=== PATIENT | female | born 2005 | race Caucasian/White ===

== ENCOUNTER 2025-07-01 19:51 | Emergency (ER) | payer OTHER, SELFPAY ==
[2025-07-01 19:56] VITALS: BP 145/83; PULSE 97; RESP 20; TEMP 36.8; O2SAT 97; BMI 27.4
--- NOTE | 2025-07-01 20:26 | ED.GENADULT ---
HPI - General Adult General Date Seen: 07/01/25 Chief complaint: Eye Problems Stated complaint: possible eye infection Time Seen by Provider: 07/01/25 20:09 History of Present Illness HPI narrative: Patient is a 20-year-old [employer] student, here for evaluation of swelling and redness of her right eyelid. 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 Yesterday, she noted increased dryness and itching above her right eye. She has been diagnosed with seborrheic dermatitis in the past, she was given something for many years ago but does not have anything now. She has been told to use an ointment such as Aquaphor or Vaseline when she swims to protect her skin. Today however she woke up with swelling in the eyelid which she has not had before. It is mildly painful at this point, she does not have any ocular pain, vision changes or drainage. She does wear contact lenses, she does were glasses all the time. She has not had any fevers or systemic complaints. She did a virtual visit and was advised to come to the ER. Related Data Home Medications ?Medication ?Instructions ?Recorded ?Confirmed dexmethylphenidate .ROUTE 07/01/25 fluoxetine .ROUTE 07/01/25 Previous Rx's ?Medication ?Instructions ?Recorded amoxicillin 875 mg-potassium 1 tab PO BID #20 tabs 07/01/25 clavulanate 125 mg tablet ketoconazole 2 % topical cream 1 applic topical BID #15 grams 07/01/25 sulfamethoxazole 800 1 tab PO BID #20 tabs 07/01/25 mg-trimethoprim 160 mg tablet (Bactrim DS) Allergies Allergy/AdvReac Type Severity Reaction Status Date / Time gluten Allergy Unknown Verified 07/01/25 20:00 Review of Systems Status of ROS: Reports: 6 or more systems reviewed and unremarkable except as noted in History and below [facility] Social History Smoking Status: Never smoker Second hand tobacco smoke exposure: No How often do you have a drink containing alcohol: never AUDIT-C Alcohol total score: 0 Non-prescribed substance use: denies use Exam Narrative: Exam Narrative: Vital signs reviewed In general, alert, well-appearing woman. Head: Normocephalic, atraumatic. Eyes: The right eyelid is mildly swollen, faintly erythematous up to the brow. She has a scaly rash consistent with seborrheic dermatitis under the eyebrow. Extraocular movements are full, no pain. Sclera clear. ENT: No other facial swelling, redness or rashes. Const: Vital Signs, click to edit/add: Vital Signs - 24 hr 07/01/25 19:56 Temperature 98.3 F Pulse Rate [Pulse Oximeter] 97 Respiratory Rate 20 Blood Pressure [Ri ght Upper Arm] 145/83 H Pulse Oximetry 97 Oxygen Delivery Me thod Room Air Course Course ED Course: Exam is consistent with seborrheic dermatitis of the upper eyelid, she may be developing a mild superimposed cellulitis here, certainly think it is reasonable to treat with an antibiotic to cover that, but I also think she needs treatment for the seborrheic dermatitis. I have sent prescriptions for ketoconazole 2% cream, and then I sent prescriptions for Bactrim and Augmentin to cover skin kathy +MRSA. Reviewed reasons to return such as severely increased swelling or pain, ocular pain, fevers, vision changes. Nothing at this time suggestive of orbital cellulitis. Recheck otherwise in a couple of days with her school clinic. She is comfortable with that plan. Vital Signs Vital signs: Initial Vital Signs Temperature 98.3 F 07/01/25 19:56 Temperature Source Temporal Artery Scan 07/01/25 19:56 Pulse Rate 97 07/01/25 19:56 Respiratory Rate 20 07/01/25 19:56 Blood Pressure 145/83 H 07/01/25 19:56 Blood Pressure Mean 103 07/01/25 19:56 Blood Pressure Position Sitting 07/01/25 19:56 Pulse Oximetry 97 07/01/25 19:56 Oxygen Delivery Method Room Air 07/01/25 19:56 Vital Signs Temperature 98.3 F 07/01/25 19:56 Pulse Rate 97 07/01/25 19:56 Respiratory Rate 20 07/01/25 19:56 Blood Pressure 145/83 H 07/01/25 19:56 Pulse Oximetry 97 07/01/25 19:56 Oxygen Delivery Method Room Air 07/01/25 19:56 Temperature 98.3 F 07/01/25 19:56 Pulse Rate 97 07/01/25 19:56 Respiratory Rate 20 07/01/25 19:56 Blood Pressure 145/83 H 07/01/25 19:56 Pulse Oximetry 97 07/01/25 19:56 Oxygen Delivery Method Room Air 07/01/25 19:56 Discharge Plan Discharge Clinical Impression: Seborrheic dermatitis, Preseptal cellulitis of right eye Patient Disposition: Home, Self-Care Condition: Stable Instructions: Periorbital Cellulitis (ED), Seborrheic Dermatitis (DC) Additional Instructions: As discussed, part of your symptoms are due to seborrheic dermatitis. I am prescribing a topical cream for you to use to work on that. There may be a component of superimposed infection, so I am starting you on 2 antibiotics. If you are worsening instead of improving, you should come back to the ER right away, symptoms such as severe eye pain, fevers, or vision changes should prompt a return to the ER. Otherwise, I would recommend follow-up in a couple of days for recheck at your school clinic. Prescriptions: New ketoconazole 2 % cream 1 applic topical BID Qty: 15 0RF sulfamethoxazole-trimethoprim [Bactrim DS] 800-160 mg tablet 1 tab PO BID Qty: 20 0RF amoxicillin-pot clavulanate 875-125 mg tablet 1 tab PO BID Qty: 20 0RF No Action dexmethylphenidate .ROUTE fluoxetine [Prozac] .ROUTE Stand Alone Forms: [employer] Info Instructions
--- OUTSIDE RECORDS SUMMARY | 2025-07-01 20:46 | XMS_ITS | Patient Health Record ---
Author Organization [facility] Address [address] [place] [address] Care Team Providers Care Business Strategy Manager Name Role Phone Barbi CELAYA, Andra Primary Care Provider DAVE OMALLEY Unavailable [phone] Reason For Referral No Information Social History Social History Additional Details Category Social Info Options Details PSA Social History Child Lives At: At [facility] Child Lives With: Mother and [facility] No Siblings 2 sisters Alcohol/Drugs? No Activities / Interests? swimming , soccer, biking, reading, sewing Others Residing In Home: none Employment No Recent Travel [place] in March Problems Problem Type SNOMED Code ICD Code Onset Dates Problem Status W/U Status Risk Notes Problem Umbilical hernia (655892257) Umbilical hernia (553.1) Active confirmed Problem Right inguinal hernia (451252639) Right inguinal hernia (550.90) Active confirmed Plan Of Treatment No Information Insurance Providers Payer Name Payer Address Payer Phone Subscriber Number Group Number Insured Name Patient Relationship to Insured Coverage Start Date Coverage End Date [employer] [address] [address] [place] [phone] [id number] Violeta Mohamud Child - Insured has Financial Responsibility 2 Medical (General) History Medical History History ICD Code Injuries: none Immunizations: up to date viral meningitis Surgical History Surgery Date(Month/Year) Hospitalization History Reason Date(Month/Year) viral meningitis, stayed 2 days 05/2010
--- OUTSIDE RECORDS SUMMARY | 2025-07-01 20:46 | XMS_ITS | Clinical Summary ---
Author Organization [employer] Address [address] [place] [address] Care Team Providers Care Elevator Service Technician Name Role Phone Clinician, Not Found MD Primary Care Provider Un available Source Comments You are receiving this document as you are listed as the primary care provider,follow-up provider, or the patient has been referred to you for consultation.This is in compliance with the Medicare and[facility] EHR Incentive Program,which states Providers who transition their patient to another setting of careor provider of care or refers their patient to another provider of care shouldprovide summary care record for each transition of care or referral. [employer] Allergies Active Allergy Reactions Criticality Noted Date Comments Gluten Meal Hives,Gastrointestinal High 11/07/2023 Celiac disease Lactose Gastrointestinal 11/07/2023 Medications fluticasone (FLOVENT HFA) 44 mcg/actuation inhaler Inhale 1 Puff two times a day. Rinse mouth/gargle after use Active methylphenidate (RITALIN SR) 10 MG controlled release tablet Take 1 Tablet (10 mg) by mouth daily. 06/18/2023 Active budesonide-form oterol (SYMBICORT) 80-4.5 MCG/ACT inhaler Inhale 2 Puffs two times a day. Rinse mouth/gargle after use. Active dexmethylphenid ate (FOCALIN XR) 10 MG 24 hour release capsule Take 1 Capsule (10 mg) by mouth every morning. 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 (11/26/2024): mild T7-8 Celiac disease 11/07/2023 Social History Tobacco Use Types Packs/Day Years Used Date Smoking Tobacco: Never Passive Smoke Exposure: Never Smokeless Tobacco: Never Tobacco Cessation:Counseling Given: Not Answered Alcohol Use Standard Drinks/Week Comments Never 0 (1 standard drink = 0.6 oz pur e alcohol) Comments No Sex and Gender Information Value Date Recorded Sex Assigned at Not on file Legal Sex Female 5:50 PM SYNTHETIC SOIL [employer]S PULPER Gender Identity Not on file Sexual Orientation Not on file Last Filed Vital Signs Vital Sign Reading Time Taken Comments Blood Pressure 126/63 11/07/2023 8:05 AM SYNTHETIC [employer]IL [employer] PULPER Pulse 86 11/07/2023 8:05 AM SYNTHETIC [employer]IL [employer] PULPER Temperature 36.7 C (98 F) 11/07/2023 8:05 AM SYNTHETIC SOIL BLOCK[employer] PULPER Respiratory Rate 20 11/07/2023 8:05 AM SYNTHETIC SOIL [employer] PULPER Oxygen Saturation - - Inhaled Oxygen Concentration - - Weight 70.7 kg (155 lb 12.8 oz) 11/07/2023 8:05 AM SYNTHETIC SOIL [employer] PULPER Height 165.1 cm (5' 5) 01/05/2021 1:22 PM CDT Body Mass Index - - Plan of Treatment Health Maintenance Due Date Last Done Comments Chlamydia 2005 Hep C Screening (Preventive Services) 2005 MenB Immunization Discussion 2005 HIV Screening (Preventive Services) 2021 Adult Preventive Visit 2023 HepB Vaccine (1) 2024 Influenza Vaccine (#1) 2025 , 06/18/2023, 08/18/2022, Additional history exists DTaP/Tdap/Td Vaccine (7 - Tdap) 02/15/2027 02/15/2017, 09/09/2010, 09/09/2009, Additional history exists Zoster/Shingles Vaccine (1 of 2) 2055 Pneumococcal Vaccine Aged Out 05/14/2006, 2005, 2005, Additional history exists No longer eligible based on patient's age to complete this topic Hib Vaccine Completed 08/06/2006, 11/2005, 2005 HepA Vaccine Completed 11/15/2006, 01/2007, 05/14/2006 IPV (Polio) Vaccine Completed 09/09/2010, 09/09/2009, 2005, Additional history exists HPV Vaccine Completed 08/28/2017, 02/15/2017 MCV4 Vaccine Completed 04/12/2022, 02/15/2017 COVID-19 Vaccine Completed 05/25/2024, 05/2023, 05/31/2022, Additional history exists Insurance [facility] Member Subscriber Plan / Payer (Ef fective 2013-Present) Name:Yumiko Mohamud Relation to Subscriber:Self Name:Yumiko Mohamud Payer ID:[id number] ([facility]) Type:Commercial Address: [facility] [id number] [employer] Care Teams Elevator Service Technician Relationship Specialty Start Date End Date Clinician, Not Found, [place] [address] PCP - General 10/31/24
--- OUTSIDE RECORDS SUMMARY | 2025-07-01 20:46 | XMS_ITS | Clinical Summary ---
Author Organization [facility] Address [address] [place] [address] Care Team Providers Care Tire Changer Aircraft Name Role Phone Pcp, No Primary Care Provider Unavailabl e Allergies No known active allergies Active Problems Problem Noted Date Diagnosed Date Celiac disease 06/13/2024 Overview (06/13/2024): 14 years old, Biopsy proven. 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 ADHD (attention deficit hype ractivity disorder), combined type 06/13/2024 Overview (06/13/2024): Ritalin. Social History Tobacco Use Types Packs/Day Years Used Date Smoking Tobacco: Never Assessed Comments Unknown Sex and Gender Information Value Date Recorded Sex Assigned at Not on file Legal Sex Female 7:11 AM DRUPAL ARCHITECT Gender Identity Not on file Sexual Orientation Not on file Plan of Treatment Health Maintenance Due Date Last Done Comments Well Child Check for age 3-20 04/04/2008 Tetanus booster 2016 Depression screening for age 12+ 2017 HIV for age 15-65 2020 HPV series for age 9-45 (1 - 3-dose series) 2020 BMI (ht and wt on same day) for age 18+ 2023 Hepatitis C screening for age 18-79 2023 Hepatitis B series for 19+ ( 1 of 3 - 19+ 3-dose series) 2024 Influenza Vaccine (#1) 2025 RSV vaccine for adults or pr egnancy (1 - 1-dose 75+ series) 2080 Meningococcal series for age 11-21 Aged Out No longer eligible based on patient's age to complete this topic Pneumococcal series for age 6-49 Aged Out No longer eligible based on patient's age to complete this topic Insurance [employer] Care Teams Tire Changer Aircraft Relationship Specialty Start Date End Date Pcp, No . PCP - General 07/01/24
--- OUTSIDE RECORDS SUMMARY | 2025-07-01 20:46 | XMS_ITS | Patient Health Record ---
Author Organization [facility] Address [address] [place] [id number] Care Team Providers Care Supervisor Cellars Name Role Phone Lorna Zambrano Primary Care Provider Allergies No Known Allergies Results Component Value Reference Range Flag Notes CMP (Comprehensive Metabolic Panel-14)) Reviewed date:02/27/2025 10:03:57 AM Interpretation:Normal Performing Lab:[address] [id number] Notes/Report: Draw Location: [facility] Urinalysis, without Micro (r outine UA) Reviewed date:02/27/2025 10:04:29 AM Interpretation:Normal Performing Lab:[address] [id number] Notes/Report: Draw Location: [facility] Zinc - MH Reviewed date:03/03/2025 01:28:54 PM Interpretation: Performing Lab: [facility] [id number] Notes/Report: Draw Location: [facility] ZINC, SERUM/PLASMA 62.3 60.0-120.0 ug/dL INTERPRETIVE INFORMATION: Zinc, Serum or Plasma Elevated results may be due to skin or collection-related contamination, including the use of a noncertified metal-free collection/transport tube. If contamination concerns exist due to elevated levels of serum/plasma zinc, confirmation with a second specimen collected in a certified metal-free tube is recommended. Circulating zinc concentrations are dependent on albumin status and are depressed with malnutrition. Zinc may also be lowered with infection, inflammation, stress, oral contraceptives, and . Zinc may be elevated with zinc supplementation or fasting. Elevated zinc concentrations may interfere with copper absorption. This test was developed and its performance characteristics determined by [facility]. It has not been cleared or approved by the [place] Food and Drug Administration. This test was performed in a CLIA certified laboratory and is intended for clinical purposes. Performed By: [facility] [address] [place] [address] Fire Extinguisher Installer: Nick Trujillo MD, PhD CLIA Number: [id number] Vitamin D Deficiency (routin e) - Reviewed date:03/03/2025 01:26:56 PM Interpretation: Performing Lab:[facility] [id number] Notes/Report: Draw Location: [facility] VITAMIN D DEFICIENCY SCREENING (LAYNE) 36 20-50 ng/mL optimum levels Season, race, dietary intake, and treatment affect the concentration of 75-fwzgzwk-Lrwgoek D. Values may decrease during winter months and increase during summer months. Vitamin D determination is routinely performed by an immunoassay specific for 25 hydroxyvitamin D3. If an individual is on vitamin D2(ergocalciferol) supplementation, please specify 25 OH vitamin D2 and D3 level determination by LCMSMS test VITD23. TSH - Reviewed date:03/03/2025 01:27:45 PM Interpretation:Normal Performing Lab:[facility] [id number] Notes/Report: Draw Location: [facility] TSH (LAYNE) 1.02 0.50-4.30 uIU/mL Triiodothyronine (T3) Free - Reviewed date:03/03/2025 01:28:04 PM Interpretation:Normal Performing Lab:[facility] [id number] Notes/Report: Draw Location: [facility] T3 FREE 3.5 2.0-4.4 pg/mL Thyroid Peroxidase Antibody - Reviewed date:03/03/2025 01:28:26 PM Interpretation: Performing Lab:[facility] [id number] Notes/Report: Draw Location: [facility] THYR PEROXIDASE LIBBY <10 <35 IU/mL Anti Thyroglobulin Antibody - Reviewed date:03/03/2025 01:27:12 PM Interpretation: Performing Lab:[facility] [id number] Notes/Report: Draw Location: [facility] THYROGLOBULIN ANTIBODY <20 <40 IU/mL TEDDY (Antinuclear Antibody Ca scade) - Reviewed date:03/03/2025 01:27:25 PM Interpretation: Performing Lab:[facility] [id number] Notes/Report: Draw Location: [facility] TEDDY INTERPRETATION Borderline Positive Negative A Negative: <1:40 Borderline Positive: 1:40 - 1:80 Positive: >1:80 TEDDY PATTERN 1 Speckled TEDDY TITER 1 1:40 Ceruloplasmin - Reviewed date:03/03/2025 01:28:34 PM Interpretation: Performing Lab:[facility] [id number] Notes/Report: Draw Location: [facility] CERULOPLASMIN 25 20-60 mg/dL T4 Free - Reviewed date:03/03/2025 01:27:32 PM Interpretation: Performing Lab:[facility] [id number] Notes/Report: Draw Location: [facility] THYROXINE, FREE 0.87 1.00-1.60 ng/dL L Miscellaneous Test - Reviewed date:03/03/2025 01:28:48 PM Interpretation: Performing Lab:[facility] [id number] Notes/Report: Draw Location: [facility] LABORATORY MISCELLANEOUS ORDER CANCELED Incorrect Specimen Type Rec'd ~.5 mL of unknown serum/plasma in an aliquot tube. Test requires whole blood in yellow ACD soln tube. Notified Sona at clinic lab. SPECIMEN SOURCE Blood Other Copper Level - Reviewed date:03/03/2025 01:27:52 PM Interpretation: Performing Lab:[facility] [id number] Notes/Report: Draw Location: [facility] COPPER 74.1 80.0-155.0 ug/dL L INTERPRETIVE INFORMATION: Copper, Serum or Plasma Elevated results may be due to skin or collection-related contamination, including the use of a noncertified metal-free collection/transport tube. If contamination concerns exist due to elevated levels of serum/plasma copper, confirmation with a second specimen collected in a certified metal-free tube is recommended. Serum copper may be elevated with infection, inflammation, stress, and copper supplementation. In females, elevated copper may also be caused by oral contraceptives and (concentrations may be elevated up to 3 times normal during the third trimester). This test was developed and its performance characteristics determined by [facility]. It has not been cleared or approved by the [place] Food and Drug Administration. This test was performed in a CLIA certified laboratory and is intended for clinical purposes. Performed By: [facility] [address] [place] [address] Fire Extinguisher Installer: Nick Trujillo MD, PhD CLIA Number: [id number] [facility] - Reviewed date:03/03/2025 01:28:19 PM Interpretation: Performing Lab:[facility] [id number] Notes/Report: Draw Location: [facility] CORTISOL, SERUM 3.7 6 to 10 AM Cortisol Reference Range: 4-22 ug/dL 4 to 8 PM Cortisol Reference Range: 3-17 ug/dL GGT - Reviewed date:03/03/2025 01:28:41 PM Interpretation:Normal Performing Lab:[facility] [id number] Notes/Report: Draw Location: [facility] GGT (LAYNE) 14 5-36 U/L Ferritin - Reviewed date:03/03/2025 01:28:11 PM Interpretation:Normal Performing Lab:[facility] [id number] Notes/Report: Draw Location: [facility] FERRITIN 85 6-175 ng/mL EBV Ab (Karely-Goncalves Virus A ntibody IgG) - Reviewed date:03/03/2025 01:27:05 PM Interpretation: Performing Lab:[facility] [id number] Notes/Report: Draw Location: [facility] EBVCAG INSTRUMENT VALUE <10.0 <18.0 U/mL EBV CAPSID ANTIBODY IGG No detectable antibody. No detectable antibody. EBVNA1 INSTRUMENT VALUE <3.0 <18.0 U/mL EBV NUCLEAR ANTIGEN (EBNA) ANTIBODY IGG No detectable antibody. No detectable antibody. EBVEAD INSTRUMENT VALUE <5.0 0.0-9.0 U/mL EBV ANTIBODY TO EARLY ANTIGEN IGG No detectable antibody. No detectable antibody. DHEA Sulfate - Reviewed date:03/03/2025 01:27:38 PM Interpretation: Performing Lab:[facility] [id number] Notes/Report: Draw Location: [facility] DHEA SULFATE 201 35-430 ug/dL Vitamin A- Reviewed date:03/03/2025 01:27:19 PM Interpretation: Performing Lab:[facility] [id number] Notes/Report: Draw Location: [facility] VITAMIN A 0.62 0.30-1.20 mg/L RETINOL PALMITATE 0.02 0.00-0.10 mg/L VITAMIN A INTERP Normal This test was developed and its performance characteristics determined by [facility]. It has not been cleared or approved by the US Food and Drug Administration. This test was performed in a CLIA certified laboratory and is intended for clinical purposes. Performed By: [facility] [address] [place] [address] [employer] Extinguisher Installer: Nick Trujillo MD, PhD CLIA Number: [id number] CBC, Complete, with Auto Dif f - Sysmex Reviewed date:02/27/2025 10:03:46 AM Interpretation: Performing Lab:[facility], [facility] [address], [place], [place] [id number] Notes/Report: Draw Location: [facility] Insulin Libby-MH Reviewed date:03/04/2025 06:06:49 AM Interpretation: Performing Lab:[facility] [id number] Notes/Report: Draw Location: [facility] INSULIN ANTIBODIES <0.4 0.0-0.4 U/mL INTERPRETIVE INFORMATION: Insulin Antibody A value greater than 0.4 Kronus Units/mL is considered positive for Insulin Antibody. Kronus units are arbitrary. Kronus Units = U/mL. This assay is intended for the semi-quantitative determination of antibodies to endogenous insulin or antibodies to exogenous insulin in human serum. Antibodies to exogenous insulin therapies may be detected using this method. The magnitude of the measured result is not related to disease progression. Results should be interpreted within the context of clinical symptoms. Performed By: [facility] [address] [place] [address] Fire Extinguisher Installer: Nick Trujillo MD, PhD CLIA Number: [id number] Reverse T3 Reviewed date:03/03/2025 05:52:23 PM Interpretation: Performing Lab:[facility] [id number] Notes/Report: Draw Location: [facility] T3, REVERSE NG/DL 5.2 9.0-27.0 ng/dL L INTERPRETIVE INFORMATION: Triiodothyronine, Reverse - LC-MS/MS This test was developed and its performance characteristics determined by [facility]. It has not been cleared or approved by the US Food and Drug Administration. This test was performed in a CLIA certified laboratory and is intended for clinical purposes. Performed By: [facility] [address] [place] [address] [employer] Extingu[employer] Installer: Nick Trujillo MD, PhD CLIA Number: [id number] Reason For Referral No Information Medications Medication SIG (Take, Route, Frequency, Duration) Notes Start Date End Date Status Melatonin 5 MG Tablet 1/2 tab qhs Orally Once a day; Duration: 30 day(s) Active Focalin XR 20 MG Capsule Extended Release 24 Hour 1 capsule in the morning Orally Once a day; Duration: 30 days 12/17/2024 Active ZyrTEC Allergy Activ e Symbicort 80-4.5 MCG/ACT Aerosol 1 puff as needed Inhalation every 4 hrs Not-Taking/PRN PROzac 10 MG Capsule 1 capsule in the morning in addition to 20mg for a total of 30mg Orally Once a day; Duration: 90 days Active NuvaRing Active Flovent HFA 110 MCG/ACT Aerosol 1 puff Inhalation Twice a day; Duration: as needed PRN colds Not-Taking/P RN Focalin 5 MG Tablet 1 tablet as needed at noon Orally Once a day; Duration: 90 days 05/09/2024 Active Focalin XR 15 MG Capsule Extended Release 24 Hour 1 capsule in the morning Orally Once a day; Duration: 30 days 06/16/2024 Active Vitamin B 12 Active Iron Active PROzac 20 MG Capsule 1 capsule in the morning in addition to 10mg dose for a total of 30mg Orally Once a day; Duration: 30 days Active Vitamin D Active FLUoxetine HCl 10 MG Capsule 1 capsule in addition to 20mg for a total of 30mg Orally Once a day; Duration: 30 days 03/24/2025 Active Immunizations Vaccine Route Administration Date Status Comme nts Varicella, (Varivax) Unknown 05/14/2006 Administered Varicella, (Varivax) Unknown 05/17/2009 Administered Typhoid vaccine, injectable (ViCPs) IM Intramuscular 11/14/2023 Administered Tdap (tetanus diptheria pertussis), over 7 yrs (Boostrix) IM Intramuscular 02/15/2017 Administered SARSCOV2 vaccine, (Pfizer) Omnicron Unknown 05/31/2022 Administered SARSCOV2 vaccine, (Pfizer) 12-17 original formulation IM Intramuscular 01/26/2021 Administered SARSCOV2 vaccine, (Pfizer) 12-17 original formulation IM Intramuscular 02/16/2021 Administered SARSCOV2 vaccine, (Pfizer) 12-17 original formulation Unknown 08/12/2021 Administered SARSCOV2 vaccine, (Moderna) 12yrs and older Unknown 05/25/2024 Administered SARS-COV-2 (COVID-19) vaccine, unspecified Unknown 08/11/2023 Administered Polio vaccine, (IPOL) Unknown 2005 Administered Polio vaccine, (IPOL) Unknown 2005 Administered Polio vaccine, (IPOL) Unknown 2005 Administered Pneumococcal vaccine, 7 valent (Prevnar 7) Unknown 2005 Administered Pneumococcal vaccine, 7 valent (Prevnar 7) Unknown 2005 Administered Pneumococcal vaccine, 7 valent (Prevnar 7) Unknown 2005 Administered Pneumococcal vaccine, 7 valent (Prevnar 7) Unknown 05/14/2006 Administered MMR vaccine, live Unknown 05/14/2006 Administered MMR vaccine, live Unknown 05/17/2009 Administered Meningococcal, (Menveo) tetravalent IM Intramuscular 02/15/2017 Administered lower Meningococcal, (Menveo) tetravalent IM Intramuscular 04/12/2022 Administered Influenza vaccine, historical Unknown 08/18/2022 Administered Influenza vaccine, historical Unknown 05/25/2024 Administered Human Papilloma Virus, (HPV9) Gardasil 9 IM Intramuscular 02/15/2017 Administered upper Human Papilloma Virus, (HPV9) Gardasil 9 IM Intramuscular 08/28/2017 Administered Hepatitis B, vaccine pediatric 3-dose (Engerix-B) Unknown 2005 Administered Hepatitis B, vaccine pediatric 3-dose (Engerix-B) Unknown 2005 Administered Hepatitis B, vaccine pediatric 3-dose (Engerix-B) Unknown 2005 Administered Hepatitis A pediatric, 2-dose (Havrix) Unknown 05/14/2006 Administered Hepatitis A pediatric, 2-dose (Havrix) Unknown 11/15/2006 Administered Hemophilus B vaccine, (PedvaxHIB) Unknown 2005 Administered Hemophilus B vaccine, (ActHIB) Unknown 2005 Administered Hemophilus B vaccine, (ActHIB) Unknown 08/06/2006 Administered Flu vaccine (Fluzone) >3 yrs, quadrivalent IM Intramuscular 06/09/2014 Administered Flu vaccine (Fluzone) >3 yrs, quadrivalent Unknown 08/09/2020 Administered Flu vaccine (FluLaval), quadrivalent IM Intramuscular 05/01/2017 Administered Flu vaccine (FluLaval), quadrivalent IM Intramuscular 07/17/2019 Administered Flu vaccine (FluLaval), quadrivalent IM Intramuscular 07/23/2021 Administered Flu vaccine (FluLaval), quadrivalent IM Intramuscular 06/18/2023 Administered Flu vaccine (FLUARIX) >3 yrs, quadrivalent IM Intramuscular 07/15/2015 Administered DTaP-IPV vaccine, 4-6 yrs (Kinrix) Unknown 09/09/2009 Administered DTaP, under 7 yrs (Infanrix) Unknown 2005 Administered DTaP, under 7 yrs (Infanrix) Unknown 2005 Administered DTaP, under 7 yrs (Infanrix) Unknown 2005 Administered DTaP, under 7 yrs (Infanrix) Unknown 08/06/2006 Administered Social History Social History Social history Social Info Question Answer Notes Household: Living situation: Single home Lives with: Both parents together, Sibling(s ) How many adults live in household? 2 How many children live in household? 3 Parents marital status Is the child adopted? No Problems Problem Type SNOMED Code ICD Code Onset Dates Problem Status W/U Status Risk Notes Problem Seasonal allergy (978161311) Seasonal allergies (J30.2) Active confirmed Problem Asthma (832077315) Asthma (J45.909) Active confirmed Problem Celiac disease (206703252) Celiac disease (K90.0) Active confirmed Dx by serum steve dy and esophagogastroduoden oscopy with biopsies, Dr. Hitchcock, Followed by [facility] Problem Intolerance to lactose (finding) (196243226) Lactose intolerance (E73.9) Active confirmed Problem Contraception care education (892841323) Contraceptive education (Z30.09) Active confirmed Problem Nevus (3785855922) Nevus (D22.9) Active confirmed Problem Allergic rhinitis caused by animal hair and dander (8871884803939 09) Allergic to cats (J30.81) Active confirmed Problem Anxiety (59999682) Anxiety (F41.9) Active confirmed Problem Attention deficit hyperactivity disorder (417162967) Attention deficit hyperactivity disorder (ADHD), combined type (F90.2) Active confirmed Problem Hypermobility of joint (413559767) Hypermobility of joint (M24.9) Active confirmed Problem Intrauterine contraceptive device in situ (finding) (253032765) Nexplanon in place (Z97.5) Active confirmed Problem Elevated blood pressure reading without diagnosis of hypertension (576478636) Elevated systolic blood pressure reading without diagnosis of hypertension (R03.0) Active confirmed Vital Signs Blood pressure diastolic 62 mm Hg 08/25/2024 Height 66.5 in 08/25/2024 BMI Percentile 84.21 % 08/25/2024 Blood pressure systolic 124 mm Hg 08/25/2024 Weight 163.4 lbs 08/25/2024 BMI 25.98 kg/m2 08/25/2024 Encounters Encounter Location Date Provider Diagnosis [address] [address] 08/25/2024 Lorna Zambrano Celiac disease K90.0 ; Attention deficit hyperactivity disorder (ADHD), combined type F90.2 ; Anxiety F41.9 and Elevated systolic blood pressure reading without diagnosis of hypertension R03.[address] [address] 02/27/2025 Lorna Kenya Attention deficit hyperactivity disorder (ADHD), combined type F90.2 ; 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 ; Anxiety F41.9 and Acute joint pain M25.[address] [address] 03/30/2025 Lorna Zambrano Hypermobility of [place] nt M24.[address] [address] 08/02/2024 Lorna Kenya [address] [address] 08/13/2024 Lorna Zambrano Anxiety F41.[address] [address] 10/16/2024 Lorna Zambrano Attention deficit hyperactivity disorder (ADHD), combined type F90.[address] [address] 11/26/2024 Lorna Zambrano Attention deficit hyperactivity disorder (ADHD), combined type F90.[address] [address] 03/23/2025 Lornayovanny Zambrano Anxiety F41.[address] [address] 04/28/2025 Lorna Kenya Attention deficit hyperactivity disorder (ADHD), combined type F90.[address] [address] 2025 Lorna Kenya Attention deficit hyperactivity disorder (ADHD), combined type F90.2 [facility] [address] [place] [address] 10/22/2024 Lorna Zambrano Assessments Encounter Date Diagnosis (ICD Code) Assessment Notes Treatment Notes Treatment Clinical Notes Section Notes 08/13/2024 Anxiety (ICD-10 - F41.9) 10/16/2024 Attention deficit hyperactivity disorder (ADHD), combined type (ICD-10 - F90.2) 11/26/2024 Attention deficit hyperactivity disorder (ADHD), combined type (ICD-10 - F90.2) 02/27/2025 Attention deficit hyperactivity disorder (ADHD), combined type (ICD-10 - F90.2) 02/27/2025 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 Hitchcock, Followed by [facility] 08/25/2024 Attention deficit hyperactivity disorder (ADHD), combined type (ICD-10 - F90.2) Full psychological evaluation by [facility] demonstrated diagnoses of anxiety and ADHD. Clinical picture most consistent with anxiety characterized predominantly by feelings of perfectionistic personality, panic and excessive fears without suicidal thoughts or ideation. Goals of therapy include ability to control anxiety flares and improved Gary-night blues/worry. Therapeutic interventions include the following: Life style intervention by means of consistent exertional exercise x5/week, wide variety of nutritious foods, and normalized sleep patterns. She does very well form a lifestyle perspective and continues to adhere to regular sessions with her therapist. Fluoxetine 10 mg started in with positive but suboptimal effect, prompting increased to Fluoxetine 20 mg qAM and then 30mg daily. She now has very well controlled anxiety. As detailied, ADHD medication interventions started on with Methylyphenidate HCL-ER. Given suboptimtal effects but co-occuring 5lb weight loss in 1 month, transition to Focalin 10mg made . In we increased to Focalin XR 15mg qAM and Focalin 5mg at noon PRN. Given weaning effects of stimulant, we increased to Focalin XR 20mg qAM . Discussed approach of max dosing. Immediate medication attention should be sought in the case of thoughts of self harm. Follow-up in 6 months, sooner with progressive concerns. 08/25/2024 Anxiety (ICD-10 - F41.9) Today we created a comprehensive management plan for your child's anxiety. Here is a summary of what was discussed: 1. Therapy is a critical part of your journey to improved mental health. Studies consistently show us that rates of mental health treatment are highest when we combine both medication and therapy together. Coninue reglular therapy through [facility]. 2. Continue Fluoxetine 30mg Our new ADHD plan: Increase to Focalin XR 20mg daily in the morning. Use the Focalin 5mg as needed around noon. 3. Restorative sleep, daily exertional exercise, limited media exposure, and a nutritious diet lay at the foundation of all mental health. Today we discusse the goal of weaning off melatonin. Remember that our long team goal is to help empower you with the tools to you need to be resilient. Good mental health management does not mean you will never have hard days but rather that you are able to learn and grow while tolerating age-appropriat e stressors. Please reach out to me with any questions. If you ever have concerns about your child's safety or concerns that they might harm themselves, immediately seek medical attention. 02/27/2025 Anxiety (ICD-10 - F41.9) 02/27/2025 Acute joint pain (ICD-10 - M25.50) 08/25/2024 Elevated systolic blood pressure reading without diagnosis of hypertension (ICD-10 - R03.0) Ongoing close anticipatory observation with continued great exercise and nutrition efforts. Currently experiencing pain from an orthopedic issue which is likely contributing. Repeat in 6 months at well check. Plan Of Treatment Pending Test Test Name Order Date Spirometry, bronchodilation responsivene ss (spirometry pre & post neb) 02/22/2017 Vortex Spacer ([facility]) 05/01/2017 Vortex Spacer ([facility]) 02/15/2017 Lab Kit (brought in) 03/30/2025 Insurance Providers Payer Name Payer Address Payer Phone Subscriber Number Group Number Insured Name Patient Relationship to Insured Coverage Start Date Coverage End Date SHELLY [address] GORAN COOPER [id number] Violeta Mohamud Child - Insured has Financial Responsibility 3 Medical (General) History Medical History History ICD Code asthma and EIB cat allergy (lives with a cat) seasonal allergies, especially spring lactose intolerance Celiac's Disease, diagnosed 2019 by serum study and esophagogastroduodenoscopy biopsies, followed by Dr. Hitchcock of [facility] Normal Echocardiogram & EKG, 2021 IUD placed and then spontane ously extruded, Nexplanon used thereafter. [facility] Surgical History Surgery Date(Month/Year) Knee repair 2013 Esophagogastroduodenoscopy with biopsies , Dr. Hitchcock 03/2020 Hospitalization History Reason Date(Month/Year) Meningitis
[2025-07-01 20:59] VITALS: BP 135/85; PULSE 89; RESP 20; TEMP 36.8; O2SAT 97
== END 2025-07-01 20:43 | disposition home or self-care (01) ==
PROVIDERS: Emergency Provider Emergency Medicine
DX: L21.9 Seborrheic dermatitis, unspecified (principal); H00.031 Abscess of right upper eyelid
CPT/HCPCS: 99283; 99284

== ENCOUNTER 2025-07-05 19:24 | Emergency (ER) | payer OTHER, SELFPAY ==
--- OUTSIDE RECORDS SUMMARY | 2025-07-05 19:26 | XMS_ITS | Patient Health Record ---
Author Organization [facility] Address [address] [place] [address] Care Team Providers Care Bread Stacker Name Role Phone Lorna Zambrano Primary Care Provider Allergies No Known Allergies Results Component Value Reference Range Flag Notes CMP (Comprehensive Metabolic Panel-14)) Reviewed date:02/27/2025 10:03:57 AM Interpretation:Normal Performing Lab:[address] [id number] Notes/Report: Draw Location: [facility] Urinalysis, without Micro (r outine UA) Reviewed date:02/27/2025 10:04:29 AM Interpretation:Normal Performing Lab:[address] [id number] Notes/Report: Draw Location: [facility] Zinc - MH Reviewed date:03/03/2025 01:28:54 PM Interpretation: Performing Lab: [facility] [id number] Notes/Report: Draw Location: [facility] ZINC, SERUM/PLASMA 62.3 [...] developed and its performance characteristics determined by [facility]. It has not been cleared or approved by the US Food and Drug Administration. This test was performed in a CLIA certified laboratory and is intended for clinical purposes. Performed By: [facility] [address] [place] [address] Color Depositing Machine Tender: Nick rTujillo MD, PhD CLIA Number: [id number] Triiodothyronine (T3) Free - Reviewed date:03/03/2025 01:28:04 PM Interpretation:Normal Performing Lab:[facility] [id number] Notes/Report: Draw Location: [facility] T3 FREE 3.5 2.0-4.4 pg/mL Thyroid Peroxidase Antibody - Reviewed date:03/03/2025 01:28:26 PM Interpretation: Performing Lab: [facility] [id number] Notes/Report: Draw Location: [facility] THYR PEROXIDASE LIBBY <10 <35 IU/mL Ceruloplasmin - Reviewed date:03/03/2025 01:28:34 PM Interpretation: Performing Lab:[facility] [id number] Notes/Report: Draw Location: [facility] CERULOPLASMIN 25 20-60 mg/dL Miscellaneous Test - Reviewed date:03/03/2025 01:28:48 PM Interpretation: Performing Lab: [facility] [id number] Notes/Report: Draw Location: [facility] LABORATORY MISCELLANEOUS ORDER CANCELED Incorrect Specimen Type Rec'd ~.5 mL of unknown serum/plasma in an aliquot tube. Test requires whole blood in yellow ACD soln tube. Notified Sona at clinic lab. SPECIMEN SOURCE Blood Other Cortisol - Reviewed date:03/03/2025 01:28:19 PM Interpretation: Performing Lab: [facility] [id number] Notes/Report: Draw Location: [facility] CORTISOL, SERUM 3.7 6 to 10 AM Cortisol Reference Range: 4-22 ug/dL 4 to 8 PM Cortisol Reference Range: 3-17 ug/dL GGT - Reviewed date:03/03/2025 01:28:41 PM Interpretation:Normal Performing Lab: [facility] [id number] Notes/Report: Draw Location: [facility] GGT (LAYNE) 14 5-36 U/L Ferritin - Reviewed date:03/03/2025 01:28:11 PM Interpretation:Normal Performing Lab: [facility] [id number] Notes/Report: Draw Location: [facility] FERRITIN 85 6-175 ng/mL Insulin Libby- Reviewed date:03/04/2025 06:06:49 AM Interpretation: Performing Lab: [facility] [id number] Notes/Report: Draw Location: [facility] INSULIN ANTIBODIES <0.4 [...] the context of clinical symptoms. Performed By: [facility] [address] [place] [address] Color Depositing Machine Tender: Nick Trujillo MD, PhD CLIA Number: [id number] Reverse T3 Reviewed date:03/03/2025 05:52:23 PM Interpretation: Performing Lab: [facility] [id number] Notes/Report: Draw Location: [facility] T3, REVERSE NG/DL 5.2 9.0-27.0 ng/dL L INTERPRETIVE INFORMATION: Triiodothyronine, Reverse - LC-MS/MS This test was developed and its performance characteristics determined by [facility]. It has not been cleared or approved by the US Food and Drug Administration. This test was performed in a CLIA certified laboratory and is intended for clinical purposes. Performed By: [facility] [address] [place] [address] Color Depositing Machine Tender: Nick Trujillo MD, PhD CLIA Number: [id number] Vitamin D Deficiency (routin e) - Reviewed date:03/03/2025 01:26:56 PM Interpretation: Performing Lab: [facility] [id number] Notes/Report: Draw Location: [facility] VITAMIN D DEFICIENCY SCREENING (LAYNE) 36 20-50 ng/mL optimum levels Season, race, dietary intake, and treatment affect the concentration of 23-msemnbo-Zvcdggb D. Values may decrease during winter months and increase during summer months. Vitamin D determination is routinely performed by an immunoassay specific for 25 hydroxyvitamin D3. If an individual is on vitamin D2(ergocalciferol) supplementation, please specify 25 OH vitamin D2 and D3 level determination by LCMSMS test VITD23. Anti Thyroglobulin Antibody - Reviewed date:03/03/2025 01:27:12 PM Interpretation: Performing Lab:[facility] [id number] Notes/Report: Draw Location: [facility] THYROGLOBULIN ANTIBODY <20 <40 IU/mL EBV Ab (Karely-Goncalves Virus A ntibody IgG) - Reviewed date:03/03/2025 01:27:05 PM Interpretation: Performing Lab:[facility] [id number] Notes/Report: Draw Location: [facility] EBVCAG INSTRUMENT VALUE <10.0 <18.0 U/mL EBV CAPSID ANTIBODY IGG No detectable antibody. No detectable antibody. EBVNA1 INSTRUMENT VALUE <3.0 <18.0 U/mL EBV NUCLEAR ANTIGEN (EBNA) ANTIBODY IGG No detectable antibody. No detectable antibody. EBVEAD INSTRUMENT VALUE <5.0 0.0-9.0 U/mL EBV ANTIBODY TO EARLY ANTIGEN IGG No detectable antibody. No detectable antibody. TSH - Reviewed date:03/03/2025 01:27:45 PM Interpretation:Normal Performing Lab:[facility] [id number] Notes/Report: Draw Location: [facility] TSH (LAYNE) 1.02 0.50-4.30 uIU/mL TEDDY (Antinuclear Antibody Ca scade) - Reviewed date:03/03/2025 01:27:25 PM Interpretation: Performing Lab: [facility] [id number] Notes/Report: Draw Location: [facility] TEDDY INTERPRETATION Borderline Positive Negative A Negative: <1:40 Borderline Positive: 1:40 - 1:80 Positive: >1:80 TEDDY PATTERN 1 Speckled TEDDY TITER 1 1:40 T4 Free - Reviewed date:03/03/2025 01:27:32 PM Interpretation: Performing Lab: [facility] [id number] Notes/Report: Draw Location: [facility] THYROXINE, FREE 0.87 1.00-1.60 ng/dL L Copper Level - Reviewed date:03/03/2025 01:27:52 PM Interpretation: Performing Lab: [facility] [id number] Notes/Report: Draw Location: [facility] COPPER 74.1 80.0-155.0 [...] developed and its performance characteristics determined by [facility]. It has not been cleared or approved by the US Food and Drug Administration. This test was performed in a CLIA certified laboratory and is intended for clinical purposes. Performed By: [facility] [address] [place] [address] Color Depositing Machine Tender: Nick Trujillo MD, PhD CLIA Number: [id number] DHEA Sulfate - Reviewed date:03/03/2025 01:27:38 PM Interpretation: Performing Lab:[facility] [id number] Notes/Report: Draw Location: [facility] DHEA SULFATE 201 35-430 ug/dL Vitamin A- Reviewed date:03/03/2025 01:27:19 PM Interpretation: Performing Lab:[facility] [id number] Notes/Report: Draw Location: [facility] VITAMIN A 0.62 0.30-1.20 mg/L RETINOL PALMITATE 0.02 0.00-0.10 mg/L VITAMIN A INTERP Normal This test was developed and its performance characteristics determined by [facility]. It has not been cleared or approved by the US Food and Drug Administration. This test was performed in a CLIA certified laboratory and is intended for clinical purposes. Performed By: [facility] [address] [place] [address] Color Depositing Machine Tender: Nick Trujillo MD, PhD CLIA Number: [id number] CBC, Complete, with Auto Dif f - Sysmex Reviewed date:02/27/2025 10:03:46 AM Interpretation: Performing Lab:[facility], [address] [place] [address], [place], [place] [id number] Notes/Report: Draw Location: [facility] Reason For Referral No Information Medications Medication [...] W/U Status Risk Notes Problem Seasonal allergy (279239080) Seasonal allergies (J30.2) Active confirmed Problem Asthma (728264346) Asthma (J45.909) Active confirmed Problem Celiac disease (156400278) Celiac disease (K90.0) Active confirmed Dx by serum steve dy and esophagogastroduoden oscopy with biopsies, Dr. Hitchcock, Followed by [facility] Problem Intolerance to lactose (finding) (145136773) Lactose intolerance (E73.9) Active confirmed Problem Contraception care education (075324709) Contraceptive education (Z30.09) Active confirmed Problem Nevus (7707200765) Nevus (D22.9) Active confirmed Problem Allergic rhinitis caused by animal hair and dander (6038018561093 09) Allergic to cats (J30.81) Active confirmed Problem Anxiety (65667265) Anxiety (F41.9) Active confirmed Problem Attention deficit hyperactivity disorder (306364204) Attention deficit hyperactivity disorder (ADHD), combined type (F90.2) Active confirmed Problem Hypermobility of joint (249773690) Hypermobility of joint (M24.9) Active confirmed Problem Intrauterine contraceptive device in situ (finding) (498283158) Nexplanon in place (Z97.5) Active confirmed Problem Elevated blood pressure reading without diagnosis of hypertension (043464370) Elevated systolic blood pressure reading without diagnosis of hypertension (R03.0) Active confirmed Vital Signs Blood pressure diastolic 62 mm Hg 08/25/2024 BMI Percentile 84.21 % 08/25/2024 Height 66.5 in 08/25/2024 Blood pressure systolic 124 mm Hg 08/25/2024 Weight 163.4 lbs 08/25/2024 BMI 25.98 kg/m2 08/25/2024 Encounters Encounter Location Date Provider Diagnosis [address] [address] 08/25/2024 Lorna Zambrano Celiac disease K90.0 ; Attention deficit hyperactivity disorder (ADHD), combined type F90.2 ; Anxiety F41.9 and Elevated systolic blood pressure reading without diagnosis of hypertension R03.[address] [address] 02/27/2025 Lorna Kenya Attention deficit hyperactivity disorder (ADHD), combined type F90.2 ; 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 ; Anxiety F41.9 and Acute joint pain M25.[address] [address] 03/30/2025 Lorna Zambrano Hypermobility of [place] nt M24.[address] [address] 08/02/2024 Lorna Kenya [address] [address] 08/13/2024 Lorna Zambrano Anxiety F41.[address] [address] 10/16/2024 Lorna Zambrano Attention deficit hyperactivity disorder (ADHD), combined type F90.[address] [address] 11/26/2024 Lorna Zambrano Attention deficit hyperactivity disorder (ADHD), combined type F90.[address] [address] 03/23/2025 Lornayovanny Zambrano Anxiety F41.[address] [address] 04/28/2025 Lorna Kenya Attention deficit hyperactivity disorder (ADHD), combined type F90.[address] [address] 2025 Lorna Kenya Attention deficit hyperactivity disorder (ADHD), combined type F90.2 [facility] [address] [facility] [address] [place] [address] 10/22/2024 Lorna Zambrano Assessments Encounter Date Diagnosis (ICD Code) Assessment Notes Treatment Notes Treatment Clinical Notes Section Notes 08/13/2024 Anxiety (ICD-10 - F41.9) 08/25/2024 Celiac disease (ICD-10 - K90.0) Dx by serum study and esophagogastroduodenos copy with biopsies, Dr. Hitchcock, Followed by [facility] 08/25/2024 Attention deficit hyperactivity disorder (ADHD), [...] in 6 months, sooner with progressive concerns. 10/16/2024 Attention deficit hyperactivity disorder (ADHD), combined [...] (ADHD), combined type (ICD-10 - F90.2) 02/27/2025 Anxiety (ICD-10 - F41.9) 08/25/2024 Anxiety (ICD-10 - F41.9) Today we created a comprehensive management plan for your child's anxiety. Here is a summary of what was discussed: 1. Therapy is a critical part of your journey to improved mental health. Studies consistently show us that rates of mental health treatment are highest when we combine both medication and therapy together. Coninue reglular therapy through [facility]. 2. Continue Fluoxetine 30mg Our new ADHD [...] might harm themselves, immediately seek medical attention. 08/25/2024 Elevated systolic blood pressure reading without diagnosis of hypertension (ICD-10 - R03.0) Ongoing close anticipatory observation with continued great exercise and nutrition efforts. Currently experiencing pain from an orthopedic issue which is likely contributing. Repeat in 6 months at [facility]. 02/27/2025 Acute joint pain (ICD-10 - M25.50) Plan Of Treatment Pending Test Test Name Order Date Spirometry, bronchodilation responsivene ss (spirometry pre & post neb) 02/22/2017 Vortex Spacer ([facility]) 05/01/2017 Vortex Spacer ([facility]) 02/15/2017 Lab Kit (brought in) 03/30/2025 Insurance Providers Payer Name Payer Address Payer Phone Subscriber Number Group Number Insured Name Patient Relationship to Insured Coverage Start Date Coverage End Date [employer] [address] GORAN COOPER [id number] Violeta Mohamud Child - Insured has Financial Responsibility 3 Medical (General) History Medical History History ICD Code asthma and EIB cat allergy (lives with a cat) seasonal allergies, especially spring lactose intolerance Celiac's Disease, diagnosed 2019 by serum study and esophagogastroduodenoscopy biopsies, followed by Dr. Hitchcock of [facility] Normal Echocardiogram & EKG, 2021 IUD placed and then spontane ously extruded, Nexplanon used thereafter. [facility] Surgical History Surgery Date(Month/Year) Knee repair 2013 Esophagogastroduodenoscopy with biopsies , Dr. Hitchcock 03/2020 Hospitalization History Reason Date(Month/Year) Meningitis
--- OUTSIDE RECORDS SUMMARY | 2025-07-05 19:27 | XMS_ITS | Patient Health Record ---
Author Organization [facility] Address [address] [facility] [address] [place] [address] Care Team Providers Care Automotive Glass Specialist Name Role Phone Barbi CELAYA, Andra Primary Care Provider [phone] DAVE OMALLEY [phone] Reason For Referral No Information Social History Social History Additional Details Category Social Info Options Details PSA Social History Child Lives At: At [facility] Child Lives With: Mother and [facility] her Day Care No Siblings 2 sisters Alcohol/Drugs? No Activities / Interests? swimming , soccer, biking, reading, sewing Others Residing In Home: none Employment No Recent Travel [place] in March Problems Problem Type SNOMED Code ICD Code Onset Dates Problem Status W/U Status Risk Notes Problem Umbilical hernia (445330331) Umbilical hernia (553.1) Active confirmed Problem Right inguinal hernia (781836140) Right inguinal hernia (550.90) Active confirmed Plan Of Treatment No Information Insurance Providers Payer Name Payer Address Payer Phone Subscriber Number Group Number Insured Name Patient Relationship to Insured Coverage Start Date Coverage End Date [facility] [address] [address] [place] [address] [id number] Violeta Mohamud Child - Insured has Financial Responsibility 2 Medical (General) History Medical History History ICD Code Injuries: none Immunizations: up to date viral meningitis Surgical History Surgery Date(Month/Year) Hospitalization History Reason Date(Month/Year) viral meningitis, stayed 2 days 05/2010
--- OUTSIDE RECORDS SUMMARY | 2025-07-05 19:27 | XMS_ITS | Clinical Summary ---
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 PCP - General 07/01/24
--- OUTSIDE RECORDS SUMMARY | 2025-07-05 19:27 | XMS_ITS | Clinical Summary ---
Author Organization [facility] Address [address] [place] [address] Care Team Providers Care Teaching Aide Name Role Phone Clinician, Not Found MD Primary Care Provider Un available Source Comments You are receiving this document as you are listed as the primary care provider,follow-up provider, or the patient has been referred to you for consultation.This is in compliance with the Medicare and[facility] EHR Incentive Program,which states Providers who transition their patient to another setting of careor provider of care or refers their patient to another provider of care shouldprovide summary care record for each transition of care or referral. [facility] Allergies Active Allergy Reactions Criticality Noted Date [...] on file Legal Sex Female 5:50 PM SENIOR RECRUITER Gender Identity Not on file Sexual Orientation Not on file Last Filed Vital Signs Vital Sign Reading Time Taken Comments Blood Pressure 126/63 11/07/2023 8:05 AM SENIOR RECRUITER Pulse 86 11/07/2023 8:05 AM SENIOR RECRUITER Temperature 36.7 C (98 F) 11/07/2023 8:05 AM SENIOR RECRUITER Respiratory Rate 20 11/07/2023 8:05 AM SENIOR RECRUITER Oxygen Saturation - - Inhaled Oxygen Concentration - - Weight 70.7 kg (155 lb 12.8 oz) 11/07/2023 8:05 AM SENIOR RECRUITER Height 165.1 cm (5' 5) 01/05/2021 1:22 [...] 05/25/2024, 05/2023, 05/31/2022, Additional history exists Insurance [facility] Member Subscriber Plan / Payer (Ef fective 2013-Present) Name:Yumiko Mohamud Relation to Subscriber:Self Name:Yumiko Mohamud Payer ID:[id number] ([facility]) Type:Commercial Address: [facility] [id number] [address] [employer] Care Teams Teaching Aide Relationship Specialty Start Date End Date Clinician, Not Found, [place] [address] PCP - General 10/31/24
[2025-07-05 19:34] VITALS: BP 163/73; PULSE 82; RESP 16; TEMP 36.9; O2SAT 99; BMI 27.4
--- NOTE | 2025-07-05 20:02 | ED.GENADULT ---
HPI - General Adult General Chief complaint: Nausea/Vomiting Stated complaint: Reaction to anti-biotics Time Seen by Provider: 07/05/25 20:02 History of Present Illness HPI narrative: patient on 2 antibiotics and topical for cellulitis of her right eye since Sunday , having nausea from meds, eye is improving 20-year-old woman presenting to emergency department with concern of vomiting well really just dry heaving at this point. Four days ago was diagnosed with preseptal cellulitis of the right eye in the setting seborrheic dermatitis and initiated on Bactrim and Augmentin and ketoconazole cream. Her eye is markedly improved. Is not having eye or abdominal pain. No fever. Still with significant nausea. Would appreciate IV fluids. The degree of nausea contributing to inability to focus, look at her computer as she studies for exams. Related Data Home Medications ?Medication ?Instructions ?Recorded ?Confirmed dexmethylphenidate .ROUTE 07/01/25 fluoxetine .ROUTE 07/01/25 Previous Rx's ?Medication ?Instructions ?Recorded amoxicillin 875 mg-potassium 1 tab PO BID #20 tabs 07/01/25 clavulanate 125 mg tablet ketoconazole 2 % topical cream 1 applic topical BID #15 grams 07/01/25 sulfamethoxazole 800 1 tab PO BID #20 tabs 07/01/25 mg-trimethoprim 160 mg tablet (Bactrim DS) cefdinir 300 mg capsule 300 mg PO BID #12 caps 07/05/25 Allergies Allergy/AdvReac Type Severity Reaction Status Date / Time gluten Allergy Unknown Verified 07/01/25 20:00 Review of Systems Status of ROS: Reports: 6 or more systems reviewed and unremarkable except as noted in History and below [facility] Social History Smoking Status: Never smoker Second hand tobacco smoke exposure: No How often do you have a drink containing alcohol: never AUDIT-C Alcohol total score: 0 Non-prescribed substance use: denies use Exam Narrative: Exam Narrative: Pleasant. Looks like she does not feel very comfortable. Skin is warm and dry. Well-perfused peripherally. No edema. Moving all extremities without difficulty. Cranial nerves 2-12 WNL. Extraocular movements are full. There is flaking skin above the right eyelid. Minimal edema of the eyelid. No erythematous change. Abdomen is soft in particular tender. Breathing easily. Heart in regular rate and rhythm. Const: Vital Signs, click to edit/add: Vital Signs - 24 hr 07/05/25 19:34 Temperature 98.4 F Pulse Rate [Right Pulse Oximeter] 82 Respiratory Rate 16 Blood Pressure [Ri ght Upper Arm] 163/73 H Pulse Oximetry 99 Oxygen Delivery Me thod Room Air Documenting provider has reviewed patient's vital signs: yes Course Vital Signs Vital signs: Initial Vital Signs Temperature 98.4 F 07/05/25 19:34 Temperature Source Temporal Artery Scan 07/05/25 19:34 Pulse Rate 82 07/05/25 19:34 Respiratory Rate 16 07/05/25 19:34 Blood Pressure 163/73 H 07/05/25 19:34 Blood Pressure Mean 103 07/05/25 19:34 Blood Pressure Position Sitting 07/05/25 19:34 Pulse Oximetry 99 07/05/25 19:34 Oxygen Delivery Method Room Air 07/05/25 19:34 Vital Signs Temperature 98.4 F 07/05/25 19:34 Pulse Rate 82 07/05/25 19:34 Respiratory Rate 16 07/05/25 19:34 Blood Pressure 163/73 H 07/05/25 19:34 Pulse Oximetry 99 07/05/25 19:34 Oxygen Delivery Method Room Air 07/05/25 19:34 Temperature 98.4 F 07/05/25 19:34 Pulse Rate 82 07/05/25 19:34 Respiratory Rate 16 07/05/25 19:34 Blood Pressure 163/73 H 07/05/25 19:34 Pulse Oximetry 99 07/05/25 19:34 Oxygen Delivery Method Room Air 07/05/25 19:34 Medications Administered Medications: Discontinued Medications Generic Name Dose Route Start Last Admin Trade Name Freq PRN Reason Stop Dose Admin Cefpodoxime Proxetil 200 mg 07/05/25 21:47 07/05/25 21:53 Cefpodoxime Proxetil 200 Mg Tablet PO 07/05/25 21:48 200 mg ONCE ONE Administration Sodium Chloride 1,000 mls @ 1,000 mls/hr 07/05/25 20:26 07/05/25 21:27 0.9 % Sodium Chloride 1000 Ml IV 07/05/25 21:25 Infused .Q1H ONE Infusion Ondansetron HCl 4 mg 07/05/25 20:26 07/05/25 20:36 Ondansetron 2 Mg/Ml Inj IVP 07/05/25 20:27 4 mg ONCE ONE Administration Medical Decision Making MDM Narrative Medical decision making narrative: I think primarily struggling with nausea related antibiotic; likely Augmentin. Does appear dehydrated. We did discuss repeating labs although seems markedly improved otherwise. Think would benefit from symptom relief with IV fluids and antiemetics and will need to consider antibiotic change. Would like to at least give a few more days of antibiotics considering potentially serious diagnosis of preseptal cellulitis. Initiated IV. Given a L normal saline. Zofran as well. Reviewing treatment recommendations, reference reviews, for preseptal cellulitis periorbital cellulitis. 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 The potential break in skin from seborrhea prompts more aggressive antibiotic therapy. I would continue with Bactrim and add a 3rd generation cephalosporin. Dosing cefpodoxime here in the emergency department as cefdinir is not available. Mother was on the phone involved in discussion of care as well. Treatment as above is markedly improved. Feel she can leave the emergency department. See patient discharge plan for further discussion Most likely it is the Augmentin that is contributing to your nausea. Given your prior diagnosis there is a substitution of antibiotic that we can make. I do not cefdinir in [facility] but you received a dose of similar cefpodoxime here tonight. I am sending in the remainder of cefdinir to your pharmacy. I would like you to complete a total of 7 days of treatment. Continue with the cefdinir, Bactrim and ketoconazole to complete that course. Complete 10 days with ketoconazole. Consider taking probiotics of some form. Also prescribing as discussed, Zofran from [facility] for nausea if needed. Medical Records Medical records reviewed: Yes I reviewed the patient's medical records Discharge Plan Discharge Clinical Impression: Preseptal cellulitis of right eye, Seborrheic dermatitis, Medication intolerance Patient Disposition: Home w/ Parent or Adult Condition: Improved Additional Instructions: Most likely it is the Augmentin that is contributing to your nausea. Given your prior diagnosis there is a substitution of antibiotic that we can make. I do not cefdinir in [facility] but you received a dose of similar cefpodoxime here tonight. I am sending in the remainder of cefdinir to your pharmacy. I would like you to complete a total of 7 days of treatment. Continue with the cefdinir, Bactrim and ketoconazole to complete that course. Complete 10 days with ketoconazole. Consider taking probiotics of some form. Also prescribing as discussed, Zofran from [facility] for nausea if needed. Prescriptions: New cefdinir 300 mg capsule 300 mg PO BID Qty: 12 0RF No Action dexmethylphenidate .ROUTE fluoxetine [Prozac] .ROUTE ketoconazole 2 % cream 1 applic topical BID Qty: 15 0RF sulfamethoxazole-trimethoprim [Bactrim DS] 800-160 mg tablet 1 tab PO BID Qty: 20 0RF amoxicillin-pot clavulanate 875-125 mg tablet 1 tab PO BID Qty: 20 0RF Follow Up/Referrals: Provider,Not a Local [Primary Care Provider, Family Practice] Stand Alone Forms: [employer] Info Instructions
[2025-07-05] MEDS: ONDANSETRON 2 MG/ML inj 4 MG IVP (20:36)
[2025-07-05] MEDS: CEFPODOXIME PROXETIL 200 MG TABLET PO (21:53)
== END 2025-07-05 22:00 | disposition home or self-care (01) ==
PROVIDERS: Emergency Provider Family Medicine
DX: R11.0 Nausea (principal); T36.95XA Adverse effect of unspecified systemic antibiotic, initial encounter; L03.213 Periorbital cellulitis; L21.9 Seborrheic dermatitis, unspecified
CPT/HCPCS: 96361; 96374; 99284; A9270; J2405; J7030

== ENCOUNTER 2025-07-07 10:10 | Emergency (ER) | payer OTHER, SELFPAY ==
--- OUTSIDE RECORDS SUMMARY | 2025-07-07 10:13 | XMS_ITS | Clinical Summary ---
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 PCP - General 07/01/24
--- OUTSIDE RECORDS SUMMARY | 2025-07-07 10:13 | XMS_ITS | Patient Health Record ---
Author Organization [facility] Address [address] [place] [id number] Care Team Providers Care Cotton Washer Name Role Phone Lorna Zambrano Primary Care Provider [phone] Allergies No Known Allergies Results Component Value Reference Range Flag Notes CMP (Comprehensive Metabolic Panel-14)) Reviewed date:02/27/2025 10:03:57 AM Interpretation:Normal Performing Lab:[address] [id number] Notes/Report: Draw Location: [facility] Urinalysis, without Micro (r outine UA) Reviewed date:02/27/2025 10:04:29 AM Interpretation:Normal Performing Lab:[address] [id number] Notes/Report: Draw Location: [facility] Zinc - MH Reviewed date:03/03/2025 01:28:54 PM Interpretation: Performing Lab: [facility] [id number] Notes/Report: Draw Location: [facility] ZINC, SERUM/PLASMA 62.3 [...] developed and its performance characteristics determined by [facility] It has not been cleared or approved by the US Food and Drug Administration. This test was performed in a CLIA certified laboratory and is intended for clinical purposes. Performed By: [facility] [address] [place] [address] Water Taxi Captain: Nick Trujillo MD, PhD CLIA Number: [id number] Triiodothyronine (T3) Free - Reviewed date:03/03/2025 01:28:04 PM Interpretation:Normal Performing Lab:[facility] [id number] Notes/Report: Draw Location: [facility] T3 FREE 3.5 2.0-4.4 pg/mL Thyroid Peroxidase Antibody - Reviewed date:03/03/2025 01:28:26 PM Interpretation: Performing Lab: [place] [id number] Notes/Report: Draw Location: [facility] THYR PEROXIDASE LIBBY <10 <35 IU/mL Ceruloplasmin - Reviewed date:03/03/2025 01:28:34 PM Interpretation: Performing Lab:[facility] [id number] Notes/Report: Draw Location: [facility] CERULOPLASMIN 25 20-60 mg/dL Miscellaneous Test - Reviewed date:03/03/2025 01:28:48 PM Interpretation: Performing Lab: [place] [id number] Notes/Report: Draw Location: [facility] LABORATORY MISCELLANEOUS ORDER CANCELED Incorrect Specimen Type Rec'd ~.5 mL of unknown serum/plasma in an aliquot tube. Test requires whole blood in yellow ACD soln tube. Notified Sona at clinic lab. SPECIMEN SOURCE Blood Other Cortisol - Reviewed date:03/03/2025 01:28:19 PM Interpretation: Performing Lab: [place] [id number] Notes/Report: Draw Location: [facility] CORTISOL, SERUM 3.7 6 to 10 AM Cortisol Reference Range: 4-22 ug/dL 4 to 8 PM Cortisol Reference Range: 3-17 ug/dL GGT - Reviewed date:03/03/2025 01:28:41 PM Interpretation:Normal Performing Lab: [place] [id number] Notes/Report: Draw Location: [facility] GGT (LAYNE) 14 5-36 U/L Ferritin - Reviewed date:03/03/2025 01:28:11 PM Interpretation:Normal Performing Lab: [place] [id number] Notes/Report: Draw Location: [facility] FERRITIN 85 6-175 ng/mL Insulin Libby- Reviewed date:03/04/2025 06:06:49 AM Interpretation: Performing Lab: [place] [id number] Notes/Report: Draw Location: [facility] INSULIN ANTIBODIES <0.4 [...] the context of clinical symptoms. Performed By: [facility] [address] [place] [address] Water Taxi Captain: Nick Trujillo MD, PhD CLIA Number: [id number] Reverse T3 Reviewed date:03/03/2025 05:52:23 PM Interpretation: Performing Lab: [place] [id number] Notes/Report: Draw Location: [facility] T3, REVERSE NG/DL 5.2 9.0-27.0 ng/dL L INTERPRETIVE INFORMATION: Triiodothyronine, Reverse - LC-MS/MS This test was developed and its performance characteristics determined by [facility] It has not been cleared or approved by the US Food and Drug Administration. This test was performed in a CLIA certified laboratory and is intended for clinical purposes. Performed By: [facility] [address] [place] [address] Water Taxi Captain: Nick Trujillo MD, PhD CLIA Number: [id number] Vitamin D Deficiency (routin e) - Reviewed date:03/03/2025 01:26:56 PM Interpretation: Performing Lab: [place] [id number] Notes/Report: Draw Location: [facility] VITAMIN D DEFICIENCY SCREENING (LAYNE) 36 20-50 ng/mL optimum levels Season, race, dietary intake, and treatment affect the concentration of 14-kaxrotf-Xmikqch D. Values may decrease during winter months and increase during summer months. Vitamin D determination is routinely performed by an immunoassay specific for 25 hydroxyvitamin D3. If an individual is on vitamin D2(ergocalciferol) supplementation, please specify 25 OH vitamin D2 and D3 level determination by LCMSMS test VITD23. Anti Thyroglobulin Antibody - Reviewed date:03/03/2025 01:27:12 PM Interpretation: Performing Lab:[facility] [id number] Notes/Report: Draw Location: [facility] THYROGLOBULIN ANTIBODY <20 <40 IU/mL EBV Ab (Karely-Goncalves Virus A ntibody IgG) - Reviewed date:03/03/2025 01:27:05 PM Interpretation: Performing Lab:[facility] [id number] Notes/Report: Draw Location: [facility] EBVCAG INSTRUMENT VALUE [...] - Reviewed date:03/03/2025 01:27:45 PM Interpretation:Normal Performing Lab:[facility] [id number] Notes/Report: Draw Location: [facility] TSH (LAYNE) 1.02 0.50-4.30 uIU/mL TEDDY (Antinuclear Antibody Ca scade) - Reviewed date:03/03/2025 01:27:25 PM Interpretation: Performing Lab: [place] [id number] Notes/Report: Draw Location: [facility] TEDDY INTERPRETATION Borderline Positive Negative A Negative: <1:40 Borderline Positive: 1:40 - 1:80 Positive: >1:80 TEDDY PATTERN 1 Speckled TEDDY TITER 1 1:40 T4 Free - Reviewed date:03/03/2025 01:27:32 PM Interpretation: Performing Lab: [place] [id number] Notes/Report: Draw Location: [facility] THYROXINE, FREE 0.87 1.00-1.60 ng/dL L Copper Level - Reviewed date:03/03/2025 01:27:52 PM Interpretation: Performing Lab: [place] [id number] Notes/Report: Draw Location: [facility] COPPER 74.1 80.0-155.0 [...] developed and its performance characteristics determined by [facility] It has not been cleared or approved by the US Food and Drug Administration. This test was performed in a CLIA certified laboratory and is intended for clinical purposes. Performed By: [facility] [address] [place] [address] Water Taxi Captain: Nick Trujillo MD, PhD CLIA Number: [id number] DHEA Sulfate - Reviewed date:03/03/2025 01:27:38 PM Interpretation: Performing Lab:[facility] [id number] Notes/Report: Draw Location: [facility] DHEA SULFATE 201 35-430 ug/dL Vitamin A- Reviewed date:03/03/2025 01:27:19 PM Interpretation: Performing Lab:[facility] [id number] Notes/Report: Draw Location: [facility] VITAMIN A 0.62 0.30-1.20 mg/L RETINOL PALMITATE 0.02 0.00-0.10 mg/L VITAMIN A INTERP Normal This test was developed and its performance characteristics determined by [facility] It has not been cleared or approved by the US Food and Drug Administration. This test was performed in a CLIA certified laboratory and is intended for clinical purposes. Performed By: [facility] [address] [place] [address] Water Taxi Captain: Nick Trujillo MD, PhD CLIA Number: [id number] CBC, Complete, with Auto Dif f - Sysmex Reviewed date:02/27/2025 10:03:46 AM Interpretation: Performing Lab:[facility], [address] [place] [address], [place], [place] [id number] Notes/Report: Draw Location: [facility] Reason For Referral [...] W/U Status Risk Notes Problem Seasonal allergy (116817654) Seasonal allergies (J30.2) Active confirmed Problem Asthma (403983424) Asthma (J45.909) Active confirmed Problem Celiac disease (970573959) Celiac disease (K90.0) Active confirmed Dx by serum steve dy and esophagogastroduoden oscopy with biopsies, Dr. Hitchcock, Followed by [facility] Problem Intolerance to lactose (finding) (070936003) Lactose intolerance (E73.9) Active confirmed Problem Contraception care education (826823397) Contraceptive education (Z30.09) Active confirmed Problem Nevus (5440966273) Nevus (D22.9) Active confirmed Problem Allergic rhinitis caused by animal hair and dander (9824443462191 09) Allergic to cats (J30.81) Active confirmed Problem Anxiety (73232628) Anxiety (F41.9) Active confirmed Problem Attention deficit hyperactivity disorder (204431174) Attention deficit hyperactivity disorder (ADHD), combined type (F90.2) Active confirmed Problem Hypermobility of joint (606844168) Hypermobility of joint (M24.9) Active confirmed Problem Intrauterine contraceptive device in situ (finding) (161088656) Nexplanon in place (Z97.5) Active confirmed Problem Elevated blood pressure reading without diagnosis of hypertension (695404254) Elevated systolic blood pressure reading without diagnosis of hypertension (R03.0) Active confirmed Vital Signs Blood pressure diastolic 62 mm Hg 08/25/2024 BMI Percentile 84.21 % 08/25/2024 Height 66.5 in 08/25/2024 Blood pressure systolic 124 mm Hg 08/25/2024 Weight 163.4 lbs 08/25/2024 BMI 25.98 kg/m2 08/25/2024 Encounters Encounter Location Date Provider Diagnosis [address] [address] 08/25/2024 Lorna Zambrano Celiac disease K90.0 ; Attention deficit hyperactivity disorder (ADHD), combined type F90.2 ; Anxiety F41.9 and Elevated systolic blood pressure reading without diagnosis of hypertension R03.[address] [address] 02/27/2025 Lorna Kenya Attention deficit hyperactivity disorder (ADHD), combined type F90.2 ; 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 ; Anxiety F41.9 and Acute joint pain M25.[address] [address] 03/30/2025 Lorna Zambrano Hypermobility of [place] nt M24.[address] [address] 08/02/2024 Lorna Kenya [address] [address] 08/13/2024 Lorna Zambrano Anxiety F41.[address] [address] 10/16/2024 Lorna Zambrano Attention deficit hyperactivity disorder (ADHD), combined type F90.[address] [address] 11/26/2024 Lorna Zambrano Attention deficit hyperactivity disorder (ADHD), combined type F90.[address] [address] 03/23/2025 Lornayovanny Zambrano Anxiety F41.[address] [address] 04/28/2025 Lorna Kenya Attention deficit hyperactivity disorder (ADHD), combined type F90.[address] [address] 2025 Lorna Kenya Attention deficit hyperactivity disorder (ADHD), combined type F90.2 [facility] [address] [place] [address] 10/22/2024 Lorna Zambrano Assessments Encounter Date Diagnosis (ICD Code) Assessment Notes Treatment Notes Treatment Clinical Notes Section Notes 08/13/2024 Anxiety (ICD-10 - F41.9) 08/25/2024 Celiac disease (ICD-10 - K90.0) Dx by serum study and esophagogastroduodenos copy with biopsies, Dr. Hitchcock, Followed by [facility] 08/25/2024 Attention deficit hyperactivity disorder (ADHD), [...] and therapy together. Coninue reglular therapy through [facility]. 2. Continue Fluoxetine 30mg Our new [...] pre & post neb) 02/22/2017 Vortex Spacer ([facility]) 05/01/2017 Vortex Spacer ([facility]) 02/15/2017 Lab Kit (brought in) 03/30/2025 Insurance Providers Payer Name Payer Address Payer Phone Subscriber Number Group Number Insured Name Patient Relationship to Insured Coverage Start Date Coverage End Date [employer]LLY [address] GORAN COOPER [id number] Violeta Mohamud Child - Insured has Financial Responsibility 3 Medical (General) History Medical History History ICD Code asthma and EIB cat allergy (lives with a cat) seasonal allergies, especially spring lactose intolerance Celiac's Disease, diagnosed 2019 by serum study and esophagogastroduodenoscopy biopsies, followed by Dr. Hitchcock of [facility] Normal Echocardiogram & EKG, 2021 IUD placed and then spontane ously extruded, Nexplanon used thereafter. [facility] Surgical History Surgery Date(Month/Year) Knee repair 2013 Esophagogastroduodenoscopy with biopsies , Dr. Hitchcock 03/2020 Hospitalization History Reason Date(Month/Year) Meningitis
--- OUTSIDE RECORDS SUMMARY | 2025-07-07 10:13 | XMS_ITS | Patient Health Record ---
Author Organization [facility] Address [address] [facility] [address] [place] [address] Care Team Providers Care Scenery Builder Name Role Phone Barbi CELAYA, Andra Primary Care Provider DAVE OMALLEY Unavailable [phone] Reason For Referral No Information Social History Social History Additional Details Category Social Info Options Details PSA Social History Child Lives At: At [facility] Child Lives With: Mother and Fat her Day Care No Siblings 2 sisters Alcohol/Drugs? No Activities / Interests? swimming , soccer, biking, reading, sewing Others Residing In Home: none Employment No Recent Travel [place] in March Problems Problem Type SNOMED Code ICD Code Onset Dates Problem Status W/U Status Risk Notes Problem Umbilical hernia (220481762) Umbilical hernia (553.1) Active confirmed Problem Right inguinal hernia (084452674) Right inguinal hernia (550.90) Active confirmed Plan Of Treatment No Information Insurance Providers Payer Name Payer Address Payer Phone Subscriber Number Group Number Insured Name Patient Relationship to Insured Coverage Start Date Coverage End Date [facility] [address] [address] [place] [address] [id number] Violeta Mohamud Child - Insured has Financial Responsibility 2 Medical (General) History Medical History History ICD Code Injuries: none Immunizations: up to date viral meningitis Surgical History Surgery Date(Month/Year) Hospitalization History Reason Date(Month/Year) viral meningitis, stayed 2 days 05/2010
--- OUTSIDE RECORDS SUMMARY | 2025-07-07 10:13 | XMS_ITS | Clinical Summary ---
Author Organization [facility] Address [address] [place] [address] Care Team Providers Care Line Up Examiner Name Role Phone Clinician, Not Found MD Primary Care Provider Un available Source Comments You are receiving this document as you are listed as the primary care provider,follow-up provider, or the patient has been referred to you for consultation.This is in compliance with the Medicare and[facility] EHR Incentive Program,which states Providers who transition their patient to another setting of careor provider of care or refers their patient to another provider of care shouldprovide summary care record for each transition of care or referral. 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 Gender Identity Not on file Sexual Orientation Not on file Last Filed Vital Signs Vital Sign Reading Time Taken Comments Blood Pressure 126/63 11/07/2023 8:05 AM OUTSIDE SALES ACCOUNT MANAGER Pulse 86 11/07/2023 8:05 AM OUTSIDE SALES ACCOUNT MANAGER Temperature 36.7 C (98 F) 11/07/2023 8:05 AM OUTSIDE SALES ACCOUNT MANAGER Respiratory Rate 20 11/07/2023 8:05 AM OUTSIDE SALES ACCOUNT MANAGER Oxygen Saturation - - Inhaled Oxygen Concentration - - Weight 70.7 kg (155 lb 12.8 oz) 11/07/2023 8:05 AM OUTSIDE SALES ACCOUNT MANAGER Height 165.1 cm (5' 5) 01/05/2021 1:22 [...] 05/25/2024, 05/2023, 05/31/2022, Additional history exists Insurance [facility] Member Subscriber Plan / Payer (Ef fective 2013-Present) Name:Yumiko oMhamud Relation to Subscriber:Self Name:Yumiko Mohamud Payer ID:[id number] ([facility]) Type:Commercial Address: [facility] [id number] [employer] Care Teams Line Up Examiner Relationship Specialty Start Date End Date Clinician, Not Found, [place] [address] PCP - General 10/31/24
[2025-07-07 10:19] VITALS: BP 128/76; PULSE 77; RESP 16; TEMP 37.1; O2SAT 97; BMI 27.0
--- NOTE | 2025-07-07 10:23 | ED.GENADULT ---
HPI - General Adult General Chief complaint: Unspecified Complaint, Adult Stated complaint: Reaction to antibiotics Time Seen by Provider: 07/07/25 10:20 History of Present Illness HPI narrative: Patient reports being started on abx for skin infection. This caused nausea so patient seen again and was switched to different abx and given Zofran for home . Patient reports continued nausea that prevents her from attending classes. No perceived eye infection at this time. 20-year-old woman presenting to the emergency department with concern of reaction to antibiotics. Was diagnosed about 6 days ago with a preseptal cellulitis of the right eye in the setting of seborrhea. Initially given Augmentin and Bactrim along with ketoconazole cream. Returned 3 days later intense nausea and vomiting. Eye symptoms were notably improved. Was hydrated, given antiemetic and Augmentin was discontinued and substituted with cefdinir. Also given Zofran. Nausea is continued. Less vomiting and has continued with treatment as prescribed. Periorbital eye thought to be asymptomatic now. Not really with abdominal pain. Just marked nausea. No fever. Is hoping to attend school swim meet at the end of the week and still has school papers due. Related Data Home Medications ?Medication ?Instructions ?Recorded ?Confirmed dexmethylphenidate .ROUTE 07/01/25 fluoxetine .ROUTE 07/01/25 Previous Rx's ?Medication ?Instructions ?Recorded amoxicillin 875 mg-potassium 1 tab PO BID #20 tabs 07/01/25 clavulanate 125 mg tablet ketoconazole 2 % topical cream 1 applic topical BID #15 grams 07/01/25 sulfamethoxazole 800 1 tab PO BID #20 tabs 07/01/25 mg-trimethoprim 160 mg tablet (Bactrim DS) cefdinir 300 mg capsule 300 mg PO BID #12 caps 07/05/25 Allergies Allergy/AdvReac Type Severity Reaction Status Date / Time gluten Allergy Unknown Verified 07/01/25 20:00 Review of Systems Status of ROS: Reports: 6 or more systems reviewed and unremarkable except as noted in History and below [facility] Social History Smoking Status: Never smoker Second hand tobacco smoke exposure: No How often do you have a drink containing alcohol: never AUDIT-C Alcohol total score: 0 Non-prescribed substance use: denies use Exam Narrative: Exam Narrative: Is accompanied by her mother at this visit. Examination right eyes without swelling or erythema. Very mild flaking in the skin below the right eyebrow. No erythema or inflammation appreciated. Extraocular moves are full and without pain. Abdomen nontender. She does look generally tired. Heart in regular rate. Breathing easily. Const: Vital Signs, click to edit/add: Vital Signs - 24 hr 07/07/25 10:19 07/07/25 11:03 Temperature 98.8 F Pulse Rate [Pulse Oximeter] 77 88 Pulse Rate [orthos tatic sitting] 88 Pulse Rate [orthos tatic standing] 104 H Respiratory Rate 16 Blood Pressure [Ri ght Upper Arm] 128/76 Blood Pressure [or thostatic lying] 127/69 Blood Pressure [or thostatic sitting] 134/68 Blood Pressure [or thostatic standing ] 113/74 Pulse Oximetry 97 Oxygen Delivery Me thod Room Air Documenting provider has reviewed patient's vital signs: yes Course Vital Signs Vital signs: Initial Vital Signs Temperature 98.8 F 07/07/25 10:19 Temperature Source Temporal Artery Scan 07/07/25 10:19 Pulse Rate 77 07/07/25 10:19 Respiratory Rate 16 07/07/25 10:19 Blood Pressure 128/76 07/07/25 10:19 Blood Pressure Mean 93 07/07/25 10:19 Pulse Oximetry 97 07/07/25 10:19 Oxygen Delivery Method Room Air 07/07/25 10:19 Vital Signs Temperature 98.8 F 07/07/25 10:19 Pulse Rate 77 07/07/25 10:19 Respiratory Rate 16 07/07/25 10:19 Blood Pressure 128/76 07/07/25 10:19 Pulse Oximetry 97 07/07/25 10:19 Oxygen Delivery Method Room Air 07/07/25 10:19 Temperature 98.8 F 07/07/25 10:19 Pulse Rate 88 07/07/25 11:03 Respiratory Rate 16 07/07/25 10:19 Blood Pressure 127/69 07/07/25 11:03 Pulse Oximetry 97 07/07/25 10:19 Oxygen Delivery Method Room Air 07/07/25 10:19 Medications Administered Medications: Discontinued Medications Generic Name Dose Route Start Last Admin Trade Name Freq PRN Reason Stop Dose Admin Sodium Chloride 1,000 mls @ 1,000 mls/hr 07/07/25 10:43 07/07/25 11:52 0.9 % Sodium Chloride 1000 Ml IV 07/07/25 11:42 Infused .Q1H ONE Infusion Ondansetron HCl 4 mg 07/07/25 10:43 07/07/25 11:15 Ondansetron 2 Mg/Ml Inj IVP 07/07/25 10:44 4 mg ONCE ONE Administration Medical Decision Making MDM Narrative Medical decision making narrative: I think is not had any the time of keeping up with oral intake. Would offer hydration again. Does not appear to have any evidence of preseptal cellulitis at this point. I would propose discontinuing all medications. Yumiko and mom are in agreement with this. Generally well with well appearing vitals. I do not feel like we need to do a larger laboratory workup. Does not have abdominal pain that I would associate with some other process. I think has just had a hard time shaking the nausea brought on by antibiotics most likely and possibly Augmentin. She would appreciate other L of fluids. Also dosed Zofran again. On reassessment again improved. See patient discharge plan for further discussion Continue to focus on hydration Yes. At this point I would just stop all those oral antibiotics. 'Course if your skin starts to get more red or swell, would be re-evaluated. Be seen also for marked increase in pain/intense headache, clear pain with movement of your eye. Would continue the ketoconazole to complete somewhere between 10 days and 2 weeks. Might add in some antibiotic ointment at the same time? Best wishes at the meet...and with your papers. Medical Records Medical records reviewed: Yes I reviewed the patient's medical records ECG Data Attestation: I personally reviewed and interpreted this ECG as follows: (Sinus. No criteria Q-wave. Rate of 70) Discharge Plan Discharge Clinical Impression: Medication adverse effect, Nausea Patient Disposition: Home w/ Parent or Adult Condition: Improved Additional Instructions: Continue to focus on hydration Yes. At this point I would just stop all those oral antibiotics. 'Course if your skin starts to get more red or swell, would be re-evaluated. Be seen also for marked increase in pain/intense headache, clear pain with movement of your eye. Would continue the ketoconazole to complete somewhere between 10 days and 2 weeks. Might add in some antibiotic ointment at the same time? Best wishes at the meet...and with your papers. Prescriptions: No Action cefdinir 300 mg capsule 300 mg PO BID Qty: 12 0RF dexmethylphenidate .ROUTE fluoxetine [Prozac] .ROUTE ketoconazole 2 % cream 1 applic topical BID Qty: 15 0RF sulfamethoxazole-trimethoprim [Bactrim DS] 800-160 mg tablet 1 tab PO BID Qty: 20 0RF amoxicillin-pot clavulanate 875-125 mg tablet 1 tab PO BID Qty: 20 0RF Follow Up/Referrals: Provider,Not a Local [Primary Care Provider, Family Practice] Stand Alone Forms: [facility] Info Instructions
[2025-07-07 11:03] VITALS: BP 113/74; BP 127/69; BP 134/68; PULSE 104; PULSE 88
[2025-07-07] MEDS: ONDANSETRON 2 MG/ML inj 4 MG IVP (11:15)
== END 2025-07-07 12:35 | disposition home or self-care (01) ==
PROVIDERS: Emergency Provider Family Medicine
DX: R11.0 Nausea (principal); T36.0X5A Adverse effect of penicillins, initial encounter; T36.1X5A Adverse effect of cephalosporins and other beta-lactam antibiotics, initial encounter
CPT/HCPCS: 93005; 96374; 99283; 99284; J2405; J7030